=== PATIENT | male | born 1965 | race African-American/Black ===

== ENCOUNTER 2018-06-07 23:28 | Emergency (ER) | payer MEDICARE, MEDICAID ==
[2018-06-07 23:45] LABS: #Basophils 0.1 thou/uL (0.0-0.2); #Eosinphils 0.2 thou/uL (0.0-0.7); #Lymphocytes 3.9 thou/uL (1.20-3.40); #Monocytes 0.6 thou/uL (0.11-0.59); #Neutrophils 3.3 thou/uL (1.40-6.50); %Basophils 1.1 % (0.0-1.0); %Eosinophils 2.1 % (0.0-10.0); %Lymphocytes 47.8 % (21.0-51.0); %Monocytes 7.9 % (0.0-10.0); %Neutrophils 41.1 % (42.0-75.0); Hemoglobin 14.7 g/dL (14.0-18.0); Mean Corpuscular HGB CONC 33.2 g/dL (32.0-36.0); Mean Corpuscular Hemoglobin 28.9 pg (27.0-31.0); Mean Corpuscular Volume 87.1 fL (78.0-98.0); Mean Platelet Volume 7.9 fL (7.4-10.4); Platelet Count 307 thou/uL (130-400); RBC Distribution Width 11.9 % (11.5-14.5); Red Blood Cell (RBC) Count 5.08 mill/uL (4.70-6.10); White Blood Cell (WBC) Count 8.1 thou/uL (4.8-10.8)
[2018-06-07] MEDS ORDERED: Adacel (T-DAP) 0.5 ML SYRINGE ONE (23:45)
[2018-06-07 23:46] LABS: PTT 27.4 SEC (22.9-36.1); Prothrombin Time 13.7 SEC (12.0-14.7)
[2018-06-07 23:57] LABS: ALT (SGPT) 17 U/L (8-55); AST (SGOT) 24 U/L (5-34); Albumin 4.1 g/dL (3.5-5.0); Alkaline Phosphatase 94 U/L (40-150); Anion Gap 12 mmol/L (10-20); BUN (Urea Nitrogen) 21 mg/dL (8.4-25.7); Bilirubin, Total 0.3 mg/dL (0.2-1.2); Calc. Creatinine Clearance 0 mL/min (70-130); Calcium 8.8 mg/dL (7.8-10.44); Carbon Dioxide 20 mmol/L (22-29); Chloride 109 mmol/L (98-107); Estimated GFR-MDRD 72; Globulin 3.8 g/dL (2.4-3.5); Glucose 140 mg/dL (70-105); Potassium 3.4 mmol/L (3.5-5.1); Protein, Total 7.9 g/dL (6.0-8.3); Sodium 138 mmol/L (136-145)
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
== END 2018-06-08 01:36 | disposition home or self-care (01) ==
LOC: ERS 23:28
DX: S41.032A Puncture wound without foreign body of left shoulder, initial encounter (principal); S21.232A Puncture wound without foreign body of left back wall of thorax without penetration into thoracic cavity, initial encounter; F31.9 Bipolar disorder, unspecified; I10 Essential (primary) hypertension; W45.8XXA Other foreign body or object entering through skin, initial encounter
CPT/HCPCS: 71045; 71250; 80053; 82150; 85025; 85610; 85730; 86850; 86900; 86901; 90471; 90715; 96360; 96361; G0390

== ENCOUNTER 2020-01-27 22:17 | Emergency (ER) | payer MEDICARE, OTHER ==
[~2020-01-27 22:17] MED LIST: Iopamidol-370 76% 500 ML 1 ML ONE
[2020-01-27 23:23] LABS: Hemoglobin 12.9 g/dL (14.0-18.0); Mean Corpuscular HGB CONC 32.9 g/dL (32.0-36.0); Mean Corpuscular Hemoglobin 27.6 pg (27.0-31.0); Mean Corpuscular Volume 83.9 fL (78.0-98.0); Mean Platelet Volume 7.8 fL (7.4-10.4); Platelet Count 313 thou/uL (130-400); RBC Distribution Width 11.9 % (11.5-14.5); Red Blood Cell (RBC) Count 4.67 mill/uL (4.70-6.10); White Blood Cell (WBC) Count 4.8 thou/uL (4.8-10.8)
[2020-01-27 23:42] LABS: Band 6 % (5-11); Eosinophils 2 % (0-10); Lymphocytes 25 % (21-51); MDiff Complete? YES; Monocytes 13 % (0-10); Neutrophil 29 % (42-75); Platelet Morphology Comment Appears Adequate; Polychromasia SLIGHT = 2-3 cells (100X) (0-2/hpf); Reactive Lymphocytes 25 % (0-10)
[2020-01-27] MEDS ORDERED: Morphine 4 MG/ML VIAL ONE (23:43)
[2020-01-27] MEDS ORDERED: Ondansetron PF 4 MG/2 ML Vial ONE (23:43)
[2020-01-27 23:44] LABS: ALT (SGPT) 20 U/L (8-55); AST (SGOT) 22 U/L (5-34); Albumin 4.1 g/dL (3.5-5.0); Alkaline Phosphatase 70 U/L (40-110); Anion Gap 12 mmol/L (10-20); BUN (Urea Nitrogen) 31 mg/dL (8.4-25.7); Bilirubin, Total 0.3 mg/dL (0.2-1.2); Calc. Creatinine Clearance 0 mL/min (70-130); Calcium 9.3 mg/dL (7.8-10.44); Carbon Dioxide 23 mmol/L (22-29); Chloride 103 mmol/L (98-107); Estimated GFR-MDRD 60; Globulin 4.1 g/dL (2.4-3.5); Glucose 96 mg/dL (70-105); Potassium 4.1 mmol/L (3.5-5.1); Protein, Total 8.2 g/dL (6.0-8.3); Sodium 134 mmol/L (136-145)
--- NOTE | 2020-01-27 23:57 | CT ---
EXAM: CT pelvis with contrast HISTORY: Rectal pain COMPARISON: None TECHNIQUE: Multiple contiguous axial images were obtained and a CT of the pelvis with contrast. Sagit laura and coronal reformats were performed. FINDINGS: No pelvic fractures are seen. No fracture of either proximal femur is seen. No significant degenerative changes are seen. There is fusion of the left sacroiliac joint. The visualized intrapelvic structures are unremarkable. The soft tissues surrounding the pelvis are u nremarkable. No perirectal inflammation or fluid collection is seen. IMPRESSION: No significant abnormality.
== END 2020-01-28 02:20 | disposition home or self-care (01) ==
LOC: ERS 22:17
DX: K62.89 Other specified diseases of anus and rectum (principal); F31.9 Bipolar disorder, unspecified; I10 Essential (primary) hypertension
CPT/HCPCS: 36415; 72193; 80053; 85025; 96361; 96374; 96375; J2270; J2405; Q9967